=== PATIENT | male | born 1985 | race Hispanic/Latino ===

== ENCOUNTER 2021-11-20 09:35 | Inpatient (IN) | payer OTHER ==
[2021-11-20] MEDS ORDERED: Boostrix 0.5 ML (Tdap) VIAL ONE ×3 (09:42→11:55)
[2021-11-20 10:42] LABS: Hemoglobin 16.1 g/dL (14.0-18.0); Mean Corpuscular HGB CONC 34.9 g/dL (32.0-36.0); Mean Corpuscular Volume 86.2 fL (78.0-98.0); Mean Platelet Volume 7.3 fL (7.4-10.4); Platelet Count 395 thou/uL (130-400); Red Blood Cell (RBC) Count 5.34 mill/uL (4.70-6.10); White Blood Cell (WBC) Count 23.6 thou/uL (4.8-10.8)
[2021-11-20 10:46] LABS: Prothrombin Time 13.4 sec (12.0-14.7)
[2021-11-20 10:47] LABS: PTT 28.8 sec (22.9-36.1)
[2021-11-20 10:56] LABS: ALT (SGPT) 75 U/L (8-55); AST (SGOT) 105 U/L (5-34); Albumin 3.6 g/dL (3.5-5.0); Alkaline Phosphatase 142 U/L (40-110); Anion Gap 14 mmol/L (10-20); BUN (Urea Nitrogen) 16 mg/dL (8.9-20.6); Bilirubin, Total 0.3 mg/dL (0.2-1.2); Calc. Creatinine Clearance 0 mL/min (70-130); Calcium 9.1 mg/dL (7.8-10.44); Carbon Dioxide 22 mmol/L (22-29); Chloride 101 mmol/L (98-107); Globulin 3.3 g/dL (2.4-3.5); Glucose 264 mg/dL (70-105); Potassium 4.4 mmol/L (3.5-5.1); Protein, Total 6.9 g/dL (6.0-8.3); Sodium 133 mmol/L (136-145)
[2021-11-20] MEDS ORDERED: Morphine 4 MG/ML VIAL ONE (10:56)
[2021-11-20 11:12] LABS: Band 8 % (5-11); Eosinophils 1 % (0-10); Lymphocytes 6 % (21-51); MDiff Complete? YES; Monocytes 3 % (0-10); Neutrophil 81 % (42-75); RBC Morphology Normal; Reactive Lymphocytes 1 % (0-10)
[2021-11-20 11:48] LABS: SARS-CoV-2 NAA Rapid Test DETECTED (NotDetected)
[2021-11-20] MEDS ORDERED: ceFAZolin Sodium/D5W 2 GM in Premix Bag 1 BAG IVPB SCH (12:00)
[2021-11-20] MEDS ORDERED: Dextrose 50% Abboject 50 ML SYRINGE SLOW IVP PRN (12:49)
[2021-11-20] MEDS ORDERED: Dextrose 5% in Water 1,000 ML IV PRN (12:49)
[2021-11-20] MEDS ORDERED: Ondansetron PF 4 MG/2 ML Vial IVP PRN (12:49)
[2021-11-20] MEDS ORDERED: hydrALAZINE 20 MG/ML VIAL SLOW IVP PRN (12:49)
[2021-11-20] MEDS ORDERED: Insulin Regular 300 UNITS/3 ML VIAL SC PRN (12:49)
[2021-11-20] MEDS ORDERED: traMADol HCl 50 MG TAB PO PRN (12:57)
[2021-11-20] MEDS ORDERED: Ibuprofen 800 MG TAB PO PRN (12:57)
[2021-11-20] MEDS ORDERED: Cyclobenzaprine 10 MG TAB PO PRN (12:57)
[2021-11-20] MEDS ORDERED: Sodium Chloride 0.9% 1,000 ML IV SCH (13:00)
[2021-11-20] MEDS ORDERED: ceFAZolin 2 GM/DEX 5% 100 ML BAG ONE (13:10)
[2021-11-20] MEDS ORDERED: Morphine 4 MG/ML VIAL SLOW IVP PRN (13:10)
[2021-11-20] MEDS ORDERED: Phenylephrine 10 MG/ML VIAL ONE ×2 (13:16→13:34)
[2021-11-20] MEDS ORDERED: Famotidine/PF 20 mg/2ml Vial ONE (13:16)
[2021-11-20] MEDS ORDERED: Fentanyl 100 MCG/2 ML VIAL ONE ×2 (13:22→14:39)
[2021-11-20] MEDS ORDERED: Succinylcholine 200 MG/10 ml SYRINGE FS ONE (13:34)
[2021-11-20] MEDS ORDERED: PROPOFOL 200 MG/20 ML VIAL ONE (13:34)
[2021-11-20] MEDS ORDERED: Rocuronium Bromide 10 MG/ML (10ML VIAL) ONE (13:34)
[2021-11-20] MEDS ORDERED: Ondansetron PF 4 MG/2 ML Vial ONE (13:34)
[2021-11-20] MEDS ORDERED: Lidocaine 1% PF 5 ML VIAL ONE (13:34)
[2021-11-20] MEDS ORDERED: Albumin 5% 500 ML ONE (14:06)
[2021-11-20 14:51] LABS: #Basophils 0.1 thou/uL (0.0-0.2); #Eosinphils 0.1 thou/uL (0.0-0.7); #Lymphocytes 1.2 thou/uL (1.20-3.40); #Monocytes 1.6 thou/uL (0.11-0.59); #Neutrophils 20.2 thou/uL (1.40-6.50); %Basophils 0.2 % (0.0-1.0); %Eosinophils 0.6 % (0.0-10.0); %Lymphocytes 5.1 % (21.0-51.0); %Neutrophils 87.1 % (42.0-75.0); Hemoglobin 14.6 g/dL (14.0-18.0); Mean Corpuscular HGB CONC 34.9 g/dL (32.0-36.0); Mean Corpuscular Hemoglobin 30.5 pg (27.0-31.0); Mean Corpuscular Volume 87.4 fL (78.0-98.0); Mean Platelet Volume 7.1 fL (7.4-10.4); Platelet Count 404 thou/uL (130-400); RBC Distribution Width 10.9 % (11.5-14.5); Red Blood Cell (RBC) Count 4.79 mill/uL (4.70-6.10); White Blood Cell (WBC) Count 23.1 thou/uL (4.8-10.8)
[2021-11-20] MEDS ORDERED: Promethazine HCl 25 MG/ML VIAL IM PRN (15:06)
[2021-11-20] MEDS ORDERED: HYDROmorphone 2 MG/ML VIAL SLOW IVP PRN (15:06)
[2021-11-20] MEDS ORDERED: Meperidine HCl/PF 25 MG/ML VIAL SLOW IVP PRN (15:06)
[2021-11-20] MEDS ORDERED: Promethazine HCl 25 MG/ML VIAL IVPB PRN (15:06)
[2021-11-20] MEDS ORDERED: Midazolam HCl 2 mg/2 ml Vial ONE (15:36)
[2021-11-20] MEDS ORDERED: SUGAMMADEX SODIUM 200 MG/2 ML VIAL ONE (15:50)
[2021-11-20] MEDS ORDERED: HYDROmorphone 2 MG/ML VIAL ONE (15:57)
[2021-11-20] MEDS ORDERED: HYDROmorphone 0.5 MG/0.5 ML SYRINGE ONE (17:58)
[2021-11-20 18:42] LABS: Hemoglobin A1c 7.8 % (4.0-6.0)
[2021-11-20 20:44] LABS: Hemoglobin 13.3 g/dL (14.0-18.0)
[2021-11-20] MEDS: Acetaminophen 325 MG TAB PO SCH ×2 (21:50→21:51)
[2021-11-20] MEDS: Sodium Chloride 0.9% 1,000 ML IV SCH ×2 (21:50)
[2021-11-20] MEDS: traMADol HCl 50 MG TAB PO SCH ×2 (21:52)
[2021-11-20] MEDS: Senokot S 8.6-50 MG TAB PO SCH (21:53)
[2021-11-20] MEDS: Famotidine/PF 20 mg/2ml Vial SLOW IVP SCH (21:53)
[2021-11-20] MEDS: ceFAZolin Sodium/D5W 2 GM in Premix Bag 1 BAG IVPB SCH (21:54)
[2021-11-20] MEDS: Morphine 4 MG/ML VIAL SLOW IVP PRN (22:26)
[2021-11-21 01:00] LABS: Hemoglobin 12.5 g/dL (14.0-18.0)
[2021-11-21] MEDS: Morphine 4 MG/ML VIAL SLOW IVP PRN ×2 (01:54→05:25)
[2021-11-21] MEDS: traMADol HCl 50 MG TAB PO SCH ×4 (01:55→20:26)
[2021-11-21] MEDS: Acetaminophen 325 MG TAB PO SCH ×4 (01:55→20:29)
[2021-11-21 04:03] LABS: #Eosinphils 0.1 thou/uL (0.0-0.7); #Lymphocytes 1.3 thou/uL (1.20-3.40); #Monocytes 1.5 thou/uL (0.11-0.59); #Neutrophils 8.4 thou/uL (1.40-6.50); %Basophils 0.2 % (0.0-1.0); %Eosinophils 0.5 % (0.0-10.0); %Lymphocytes 11.5 % (21.0-51.0); %Monocytes 13.6 % (0.0-10.0); %Neutrophils 74.2 % (42.0-75.0); Hemoglobin 12.3 g/dL (14.0-18.0); Mean Corpuscular HGB CONC 35.6 g/dL (32.0-36.0); Mean Corpuscular Hemoglobin 30.9 pg (27.0-31.0); Mean Corpuscular Volume 86.9 fL (78.0-98.0); Mean Platelet Volume 6.7 fL (7.4-10.4); Platelet Count 278 thou/uL (130-400); RBC Distribution Width 10.8 % (11.5-14.5); Red Blood Cell (RBC) Count 3.98 mill/uL (4.70-6.10); White Blood Cell (WBC) Count 11.3 thou/uL (4.8-10.8)
[2021-11-21 04:20] LABS: Anion Gap 13 mmol/L (10-20); BUN (Urea Nitrogen) 13 mg/dL (8.9-20.6); Calc. Creatinine Clearance 0 mL/min (70-130); Calcium 8.4 mg/dL (7.8-10.44); Carbon Dioxide 23 mmol/L (22-29); Chloride 102 mmol/L (98-107); Glucose 140 mg/dL (70-105); Magnesium 1.6 mg/dL (1.6-2.6); Potassium 3.8 mmol/L (3.5-5.1); Sodium 134 mmol/L (136-145)
[2021-11-21] MEDS: ceFAZolin Sodium/D5W 2 GM in Premix Bag 1 BAG IVPB SCH ×2 (05:25→13:47)
[2021-11-21 06:30] VITALS: BMI 29.6
[2021-11-21 07:21] LABS: Hemoglobin 12.6 g/dL (14.0-18.0)
[2021-11-21] MEDS: Polyethylene Glycol 3350 17 GM Packet PO SCH (08:43)
[2021-11-21] MEDS: Senokot S 8.6-50 MG TAB PO SCH ×2 (08:43→20:26)
[2021-11-21] MEDS: Famotidine/PF 20 mg/2ml Vial SLOW IVP SCH ×2 (08:43→20:29)
[2021-11-21] MEDS ORDERED: Magnesium Sulfate 3 GM in Sodium Chloride 0.9% 100 ML IV SCH (09:00)
[2021-11-21] MEDS: Insulin Regular 300 UNITS/3 ML VIAL SC PRN ×2 (11:35→16:27)
[2021-11-22] MEDS: traMADol HCl 50 MG TAB PO SCH ×3 (02:37→15:15)
[2021-11-22] MEDS: Acetaminophen 325 MG TAB PO SCH ×3 (02:38→15:15)
[2021-11-22 06:07] LABS: #Eosinphils 0.1 thou/uL (0.0-0.7); #Lymphocytes 1.3 thou/uL (1.20-3.40); #Neutrophils 8.4 thou/uL (1.40-6.50); %Eosinophils 0.8 % (0.0-10.0); %Lymphocytes 12.1 % (21.0-51.0); %Monocytes 9.5 % (0.0-10.0); %Neutrophils 77.6 % (42.0-75.0); Mean Corpuscular HGB CONC 34.8 g/dL (32.0-36.0); Mean Corpuscular Hemoglobin 30.7 pg (27.0-31.0); Mean Corpuscular Volume 88.2 fL (78.0-98.0); Mean Platelet Volume 6.8 fL (7.4-10.4); Platelet Count 265 thou/uL (130-400); RBC Distribution Width 10.8 % (11.5-14.5); Red Blood Cell (RBC) Count 3.92 mill/uL (4.70-6.10); White Blood Cell (WBC) Count 10.8 thou/uL (4.8-10.8)
[2021-11-22] MEDS: Insulin Regular 300 UNITS/3 ML VIAL SC PRN ×2 (06:41→13:04)
[2021-11-22] MEDS ORDERED: Ibuprofen 800 MG TAB PO SCH (08:30)
[2021-11-22] MEDS ORDERED: Lisinopril 20 MG TAB PO SCH (09:00)
[2021-11-22] MEDS ORDERED: Lantus 1000 UNITS/10 ML VIAL SC SCH ×2 (09:00→21:00)
[2021-11-22] MEDS ORDERED: cloNIDine 0.1 MG TAB PO SCH (09:00)
[2021-11-22 09:01] VITALS: TEMP 98.2
[2021-11-22] MEDS: Polyethylene Glycol 3350 17 GM Packet PO SCH (09:17)
[2021-11-22] MEDS: Senokot S 8.6-50 MG TAB PO SCH (09:17)
[2021-11-22] MEDS: Famotidine/PF 20 mg/2ml Vial SLOW IVP SCH (09:17)
[2021-11-22 12:54] VITALS: BP 138/90
[2021-11-23] MEDS ORDERED: FLU VACC QS2021-22(6MOS UP)/PF 60 MCG/0.5 ML SYRINGE IM ONE (09:00)
== END 2021-11-22 16:51 | disposition home or self-care (01) | DRG 492 ==
LOC: ERS 09:35 → SURG A 10:34 → IMCU/EMU 19:57 → SURG A 11-21 17:21
PROVIDERS: ADMIT Surgery; ATTEND Surgery
PROC: 0QSH04Z Reposition Left Tibia with Internal Fixation Device, Open Approach (ICD-10-PCS; principal; 2021-11-20)
DX: S82.142A Displaced bicondylar fracture of left tibia, initial encounter for closed fracture (principal); U07.1 COVID-19; Z23 Encounter for immunization; S92.102B Unspecified fracture of left talus, initial encounter for open fracture; D62 Acute posthemorrhagic anemia; S36.039A Unspecified laceration of spleen, initial encounter; E87.6 Hypokalemia; E83.42 Hypomagnesemia; E11.65 Type 2 diabetes mellitus with hyperglycemia; S06.0X0A Concussion without loss of consciousness, initial encounter; V89.2XXA Person injured in unspecified motor-vehicle accident, traffic, initial encounter; Z83.3 Family history of diabetes mellitus; Z82.49 Family history of ischemic heart disease and other diseases of the circulatory system
CPT/HCPCS: 36415; 36416; 70450; 71045; 71260; 72125; 74177; 76000; 80048; 80053; 83036; 83735; 84100; 85025; 85610; 85730; 86850; 86900; 86901; 90715; 93005; C1713; G0390; J1170; J1815; J2250; J2270; J2370; J2405; J2704; J3010; J3475; J3490; J7050; J7620; P9045; S0028; U0002

== ENCOUNTER 2021-11-30 19:30 | Emergency (ER) | payer OTHER ==
[~2021-11-30 19:30] MED LIST: Iopamidol-370 76% 500 ML 1 ML ONE
[2021-11-30 20:13] LABS: #Eosinphils 0.2 thou/uL (0.0-0.7); #Lymphocytes 2.3 thou/uL (1.20-3.40); #Monocytes 1.2 thou/uL (0.11-0.59); #Neutrophils 10.5 thou/uL (1.40-6.50); %Basophils 0.3 % (0.0-1.0); %Eosinophils 1.5 % (0.0-10.0); %Lymphocytes 16.1 % (21.0-51.0); %Monocytes 8.1 % (0.0-10.0); %Neutrophils 73.9 % (42.0-75.0); Hemoglobin 14.6 g/dL (14.0-18.0); Mean Corpuscular Hemoglobin 30.5 pg (27.0-31.0); Mean Corpuscular Volume 87.1 fL (78.0-98.0); Mean Platelet Volume 6.5 fL (7.4-10.4); Platelet Count 717 thou/uL (130-400); RBC Distribution Width 11.9 % (11.5-14.5); Red Blood Cell (RBC) Count 4.78 mill/uL (4.70-6.10); White Blood Cell (WBC) Count 14.2 thou/uL (4.8-10.8)
[2021-11-30 20:32] LABS: Bilirubin Negative (Negative); Blood, Urine Negative (Negative); Clarity Clear (Clear); Glucose, Urine (Dipstick) Greater than 1000 mg/dL (Negative); Ketone, Urine Trace mg/dL (Negative); Leukocyte Negative Leu/uL (Negative); Nitrite Negative (Negative); Protein, Urine (Dipstick) Negative (Neg-Trace); Specific Gravity, Urine 1.038 (1.002-1.036); Urobilinogen Normal mg/dL (Less than 2); pH, Urine 5.5 (5.0-9.0)
[2021-11-30 20:49] LABS: Albumin 4.2 g/dL (3.5-5.0)
[2021-11-30 20:51] LABS: Calcium 10.1 mg/dL (7.8-10.44); Chloride 94 mmol/L (98-107); Potassium 4.7 mmol/L (3.5-5.1); Sodium 130 mmol/L (136-145)
[2021-11-30 20:52] LABS: Globulin 4.1 g/dL (2.4-3.5); Glucose 495 mg/dL (70-105); Protein, Total 8.3 g/dL (6.0-8.3)
[2021-11-30 20:53] LABS: Anion Gap 19 mmol/L (10-20); Carbon Dioxide 22 mmol/L (22-29)
[2021-11-30 20:54] LABS: Bilirubin, Total 0.5 mg/dL (0.2-1.2)
[2021-11-30 20:55] LABS: Alkaline Phosphatase 294 U/L (40-110); Calc. Creatinine Clearance 0 mL/min (70-130)
[2021-11-30 20:56] LABS: BUN (Urea Nitrogen) 17 mg/dL (8.9-20.6)
[2021-11-30 20:57] LABS: AST (SGOT) 14 U/L (5-34)
[2021-11-30 20:58] LABS: ALT (SGPT) 27 U/L (8-55); Lipase 62 U/L (8-78)
[2021-11-30] MEDS ORDERED: Insulin Regular 300 UNITS/3 ML VIAL ONE (21:30)
== END 2021-11-30 22:58 | disposition home or self-care (01) ==
LOC: ERS 19:30
DX: R06.02 Shortness of breath (principal); R00.0 Tachycardia, unspecified; R73.9 Hyperglycemia, unspecified; I10 Essential (primary) hypertension
CPT/HCPCS: 36416; 71275; 74177; 80053; 81003; 83690; 84484; 85025; 96374; J1815; Q9967